=== PATIENT | male | born 1975 | race Caucasian/White ===

== ENCOUNTER 2019-12-21 18:16 | Emergency (ER) | payer OTHER ==
[~2019-12-21] VITALS: Ht 175.3 cm; Wt 90.9 kg
--- NOTE | 2019-12-21 19:11 | NUR ---
PT WAS AMBULATORY TO ED ROOM 22 WITH FAST STEADY GAIT. DR FRIAS NOW AT BS. PT C/O "HEAT" TO LT NECK, LT FACE, LT ARM. PT ADMITS TO BEING OUTSIDE TODAY. DENIES CHANGE IN STRENGTH, BUT STATES HE'S BEEN DROPPING THINGS, "I'M NOT PRECISE WITH MY HANDS". SENSATION INTACT. + ROM LUE, HEAD, NECK. PT STATES HE WAS AT [place] [facility] 1 AND 2 WEEKS AGO. MRI SCHEDULED FOR "NEXT SATURDAY". STATES HE CALLED TELE-[facility] TODAY AND THEY ADVISED ED EVAL.
[2019-12-21] MEDS ORDERED: OMEP40CA42 PO (19:18)
[2019-12-21] MEDS ORDERED: NAPROXEN (19:20)
[2019-12-21 21:02] VITALS: BP 123/81
--- NOTE | 2019-12-21 21:11 | NUR ---
AMBULATORY TO & FROM BEAN BR W/OUT INCIDENT.
== END 2019-12-21 21:37 | disposition home or self-care (01) ==
LOC: ED 21:30
DX: M79.622 Pain in left upper arm (principal); Z87.891 Personal history of nicotine dependence
CPT/HCPCS: 72141; 99284